=== PATIENT | female | born 1970 | race Caucasian/White ===

== ENCOUNTER 2018-01-27 15:24 | Day surgery (SDC) | payer OTHER ==
[~2018-01-27 15:24] MED LIST: CEFAZOLIN 1 GM INJ; PROPOFOL 200 MG INJ
[2018-01-27] MEDS ORDERED: ROPIVACAINE 0.5 % 30 ML VIAL (16:29)
[2018-01-27] MEDS ORDERED: LIDOCAINE 2% (SDV) 5 ML INJ (16:29)
[2018-01-27] MEDS ORDERED: FENTAnyl 50 MCG/ML VIAL IV (16:30)
[2018-01-27] MEDS ORDERED: MIDAZOLAM 1 MG/ML 2 ML INJ (16:30)
[2018-01-27] MEDS: LIDOCAINE 1% (MPF) 30 ML INJ INJ (17:30)
[2018-01-27] MEDS: IBUPROFEN 800 MG TAB PO (18:54)
[2018-01-28] MEDS ORDERED: IBUPROFEN 600 MG TAB NGT
== END 2018-01-27 19:33 | disposition home or self-care (01) ==
LOC: SDS 15:24
DX: G56.02 Carpal tunnel syndrome, left upper limb (principal); M65.4 Radial styloid tenosynovitis [de Quervain]; M65.842 Other synovitis and tenosynovitis, left hand; M67.432 Ganglion, left wrist
CPT/HCPCS: 25000